=== PATIENT | male | born 1980 | race African-American/Black ===

== ENCOUNTER 2017-05-14 19:31 | Emergency (ER) | payer OTHER ==
[2017-05-14 19:43] VITALS: BP 149/70; PULSE 65; TEMP 98.5; BMI 24.5
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
== END 2017-05-14 22:23 | disposition home or self-care (01) ==
LOC: JERFT 19:31
PROC: 0HQ1XZZ Repair Face Skin, External Approach (ICD-10-PCS; principal; 2017-05-14)
DX: S01.81XA Laceration without foreign body of other part of head, initial encounter (principal); W20.8XXA Other cause of strike by thrown, projected or falling object, initial encounter; Y93.89 Activity, other specified; Y92.038 Other place in apartment as the place of occurrence of the external cause; F17.210 Nicotine dependence, cigarettes, uncomplicated; E11.9 Type 2 diabetes mellitus without complications
CPT/HCPCS: 99281-25

== ENCOUNTER 2017-05-20 17:21 | Emergency (ER) | payer OTHER ==
[2017-05-20 17:37] VITALS: BP 118/57; PULSE 67; TEMP 98.2; BMI 23.9
[2017-05-20] MEDS ORDERED: CEPHALEXIN MONOHYDRATE 500 MG CAPSULE (UD) PO ONE (18:27)
--- NOTE | 2017-05-20 18:27 | PDOC ---
Suture Removal/Wound Check HPI - History of Present Illness Chief Complaint: Suture/Staple Removal(Here) Stated Complaint: STITCHES REMOVAL Time Seen by Provider: 05/20/17 17:52 History Source: Yes: Patient Exam Limitations: Yes: No Limitations Treated at: [facility] [place] Date of Last ED visit: 05/14/17 - Previous ED Treatment Type of procedure performed on last visit: Yes: Laceration Repair Tetanus Immunization: Yes: Up to Date Antibiotics Prescribed: No - Onset of Previous Treatment Date of Occurence: 05/14/17 Past History - Past Medical History Allergies/Adverse Reactions: Allergies Allergy/AdvReac Type Severity Reaction Status Date / Time No Known Allergies Allergy Verified 05/14/17 19:41 Home Medications: Ambulatory Orders Insulin (LOG) Aspart [NovoLOG -] 0 units SQ BID 06/22/13 Insulin Glargine,Hum.rec.anlog [Lantus Solostar PEN -] 30 units SQ AM 06/22/13 Cephalexin Monohydrate [Keflex -] 500 mg PO Q8H #20 capsule 05/20/17 Diabetes: Yes (IDDM) HTN: Yes - Immunization History Td Vaccination: No (unknown) Immunization Up to Date: Yes - Suicide/Smoking/Psychosocial Hx Smoking Status: Yes Smoking History: Never smoked Have you smoked in the past 12 months: No Number of Cigarettes Smoked Daily: 5 Information on smoking cessation initiated: No 'Breaking Loose' booklet given: 08/09/15 Hx Alcohol Use: No Drug/Substance Use Hx: No Substance Use Type: None Suture Removal/Wound Check PE - Physical Exam Laceration/Wound Check Symptoms: reports: Other Comment (wound edges slightly raised with tenderness of wound edges) Comments: 05/20/17 18:05 3 sutures to rt. eyebrow area inserted here on 05/14/17 Current Severity Level: Mild Maximum Severity Level: Mild Location of Laceration/Wound: right: Face (rt. eyebrow area) *Review of Systems - Review of Systems Able to Perform ROS?: Yes Constitutional: No: Symptoms Reported HEENTM: No: Symptoms Reported Respiratory: No: Symptoms reported Cardiac (ROS): No: Symptoms Reported ABD/GI: No: Symptoms Reported : No: Symptoms Reported Musculoskeletal: No: Symptoms Reported Integumentary: Yes: Other (had 5 sutures interrupted rt. eyebrow area with slight wound edges raised slightly tender to touch) Neurological: No: Symptoms reported Medical Decision Making - Medical Decision Making 05/20/17 18:31 Patient reports that he did not apply bacitracin to wound twice daily and that he left the Steri-Strips on until they fell off did not follow instructions given to him on 05/14/2017 when given discharge instructions. Suture removal right eyebrow area slight infection noted on wound edges area is slightly raised tender to to touch 05/20/17 19:42 PLAN: 5 sutures removed to right eyebrow area with some complication wound edges slightly raised tender to touch Will treat patient with Keflex 500 mg by mouth now then every 8 hours FOR 7 days *DC/Admit/Observation/Transfer Diagnosis at time of Disposition: Visit for suture removal - Discharge Dispostion Disposition: HOME Condition at time of disposition: Stable - Prescriptions Prescriptions: Cephalexin Monohydrate [Keflex -] 500 mg PO Q8H #20 capsule - Referrals Referrals: Jacqueline Restrepo MD [Primary Care Provider] - - Patient Instructions Additional Instructions: Cleanse wound twice daily with antibacterial soap and water pat dry and apply a tiny amount of bacitracin ointment until area is totally healed Take antibiotics as prescribed today until finished Return to emergency room if any increased redness or discharge from wound Patient voiced understanding of discharge instructions and all questions were answered - Post Discharge Activity
[2017-05-20] MEDS ORDERED: CEPHALEXIN MONOHYDRATE 500 MG CAPSULE (UD) ONE (18:28)
== END 2017-05-20 18:31 | disposition home or self-care (01) ==
LOC: JERFT 17:21
DX: Z48.02 Encounter for removal of sutures (principal); I10 Essential (primary) hypertension; E11.9 Type 2 diabetes mellitus without complications; Z79.4 Long term (current) use of insulin
CPT/HCPCS: 99281-25

== ENCOUNTER 2018-08-31 10:56 | Inpatient (IN) | payer OTHER ==
[2018-08-31 11:05] VITALS: BMI 25.7
[2018-08-31] MEDS ORDERED: SODIUM CHLORIDE 1,000 ML IV STA (11:36)
[2018-08-31] MEDS ORDERED: KETOROLAC TROMETHAMINE 30 MG/1 ML VIAL IVPUSH ONE (11:36)
[2018-08-31] MEDS ORDERED: ONDANSETRON 4 MG/2 ML VIAL IVPUSH ONE (11:36)
[2018-08-31] MEDS ORDERED: FAMOTIDINE 20 MG/50 ML IVPB 20 MG/50 ML MG IVPB ONE ×2 (11:42→11:54)
--- NOTE | 2018-08-31 11:42 | PDOC ---
History of Present Illness - General Chief Complaint: Nausea/Vomiting Stated Complaint: VOMITING Time Seen by Provider: 08/31/18 11:33 History Source: Patient - History of Present Illness Timing/Duration: reports: other (yesterday) Abdominal Pain Onset Location: reports: epigastric Past History - Past Medical History Allergies/Adverse Reactions: Allergies Allergy/AdvReac Type Severity Reaction Status Date / Time No Known Allergies Allergy Verified 05/14/17 19:41 Home Medications: Ambulatory Orders Insulin (LOG) Aspart [NovoLOG -] 0 units SQ BID 06/22/13 Insulin Glargine,Hum.rec.anlog [Lantus Solostar PEN -] 30 units SQ AM 06/22/13 Cephalexin Monohydrate [Keflex -] 500 mg PO Q8H #20 capsule 05/20/17 COPD: No Diabetes: Yes (IDDM) HTN: Yes - Immunization History Td Vaccination: No (unknown) Immunization Up to Date: Yes - Suicide/Smoking/Psychosocial Hx Smoking Status: Yes Smoking History: Never smoked Have you smoked in the past 12 months: No Number of Cigarettes Smoked Daily: 5 Information on smoking cessation initiated: No 'Breaking Loose' booklet given: 08/09/15 Hx Alcohol Use: No Drug/Substance Use Hx: No Substance Use Type: None Review of Systems - Review of Systems Constitutional: No: Chills, Fever Respiratory: No: Shortness of Breath Cardiac (ROS): No: Chest Pain ABD/GI: Yes: Nausea, Vomiting. No: Blood Streaked Bowels, Constipated, Diarrhea , Tarry Stools : No: Dysuria *Physical Exam - Vital Signs Last Vital Signs Temp Pulse Resp BP Pulse Ox 97.9 F 70 18 127/62 98 08/31/18 11:02 08/31/18 11:02 08/31/18 11:02 08/31/18 11:02 08/31/18 11:02 - Physical Exam Comments: 08/31/18 11:43 Pt actively vomiting in ER General Appearance: Yes: Appropriately Dressed. No: Severe Distress HEENT: positive: Normal Voice Neck: positive: Supple Respiratory/Chest: positive: Lungs Clear, Normal Breath Sounds. negative: Respiratory Distress Cardiovascular: positive: Regular Rate, S1, S2 Gastrointestinal/Abdominal: positive: Normal Bowel Sounds, Tender (epigastrium) , Soft. negative: Distended, Guarding, Rebound Musculoskeletal: negative: CVA Tenderness Integumentary: positive: Dry, Warm Neurologic: positive: Fully Oriented, Alert, Normal Mood/Affect Moderate Sedation - Procedure Monitoring Vital Signs: Procedure Monitoring Vital Signs Temperature 97.9 F 08/31/18 11:02 Pulse Rate 70 08/31/18 11:02 Respiratory Rate 18 08/31/18 11:02 Blood Pressure 127/62 08/31/18 11:02 O2 Sat by Pulse Oximetry (%) 98 08/31/18 11:02 ED Treatment Course - LABORATORY CBC & Chemistry Diagram: 08/31/18 11:41 08/31/18 11:41 Medical Decision Making - Medical Decision Making 08/31/18 11:40 37-year-old male, history of IDDM, here with nausea, vomiting and epigastric pain since yesterday. Patient reports numerous episodes of non-bilious, non- bloody vomitus. No diarrhea, fever or chills. Denies unusual food, sick contacts or recent travel. No history of similar episode. Denies history of DKA. Denies excessive alcohol use and denies illicit drug use. See exam Abd pain w/ n/v Possible gastritis/GERD vs pancreatitis vs gastroenteritis (though no diarrhea) , r/o DKA -zofran -IVF -pain control -labs -reassess 08/31/18 13:21 Glu 444 w/ gap of 17. Will start insulin drip and admit. K currently 5.4. Pt accepted by ICU, though no beds currently available. Dr Barcenas aware of admission *DC/Admit/Observation/Transfer Diagnosis at time of Disposition: DKA (diabetic ketoacidoses) Qualifiers: Diabetes mellitus type: other specified (including GAMAL) Diabetes mellitus complication detail: without coma Qualified Code(s): E13.10 - Other specified diabetes mellitus with ketoacidosis without coma - Discharge Dispostion Condition at time of disposition: Fair Decision to Admit order: Yes - Referrals - Patient Instructions - Post Discharge Activity
[2018-08-31] MEDS ORDERED: ONDANSETRON 4 MG/2 ML VIAL ONE (11:54)
[2018-08-31 12:35] LABS: BASO % 0.1 % (0-2.0); HEMOGLOBIN 14.1 GM/dL (11.7-16.9)
[2018-08-31 12:48] LABS: ALBUMIN 4.1 g/dl (3.4-5.0); ALK PHOS 90 U/L (45-117); ANION GAP 17 MMOL/L (8-16); BILIRUBIN,TOTAL 0.8 mg/dL (0.2-1); BLOOD UREA NITROGEN 27 mg/dL (7-18); CALCIUM 9.3 mg/dL (8.5-10.1); CHLORIDE 94 mmol/L (98-107); CO2 21 mmol/L (21-32); CREATININE 1.6 mg/dL (0.55-1.3); HEMATOCRIT 40.1 % (35.4-49); LIPASE 71 U/L (73-393); LYMPH % 7.3 % (8-40); MCH 31.9 pg (25.7-33.7); MCHC 35.3 g/dl (32.0-35.9); MEAN CELL VOLUME 90.2 fl (80-96); MEAN PLT VOLUME 10.7 fl (7.5-11.1); MONO % 0.9 % (3.8-10.2); NEUT % 91.7 % (42.8-82.8); PLATELET COUNT 148 K/MM3 (134-434); POTASSIUM 5.4 mmol/L (3.5-5.1); RBC 4.44 M/mm3 (4.00-5.60); RDW 13.8 % (11.9-15.9); SGOT/AST 20 U/L (15-37); SGPT/ALT 33 U/L (13-61); SODIUM 132 mmol/L (136-145); TOT PROT 7.1 g/dl (6.4-8.2); WHITE BLOOD COUNT 9.4 K/mm3 (4.0-10.0)
[2018-08-31 12:54] LABS: GLUCOSE,RANDOM 444 mg/dL (74-106)
[2018-08-31] MEDS ORDERED: INSULIN REGULAR 100 UNITS in SODIUM CHLORIDE 99 ML IVPB SCH (13:15)
[2018-08-31] MEDS ORDERED: INSULIN REGULAR HUMAN 100 UNITS/ML *VIAL IV ONE (13:17)
--- NOTE | 2018-08-31 13:32 | CONSULT ---
Consultation: REQUESTING PROVIDER: Kaya Romero CONSULT REQUEST: Management of DKA requiring Insulin gtt HISTORY OF PRESENT ILLNESS: The patient is a 37M w/ a history of HTN and T2DM who presented to the ED for evaluation of 1d of periumbilical/epigastric abdominal pain described as constant, cramping, non-radiating, and associated with nausea and multiple episodes of NBNB emesis. The patient reports that he has similar symptoms approximately every three months and they generally resolve spontaneously. In the ED, the patient was found to be in DKA and was started in an IVF and an insulin gtt. He denies previous episodes of DKA, denies previous hospitalizations for his DM. Endorses compliance with his insulin. Denies any recent changes to his regimen. Denies recent illness, fevers/chills, chest pain, SOB, diarrhea, polyuria, polydipsia, or changes in sensation. Denies sick contacts REVIEW OF SYSTEMS: GENERAL/CONSTITUTIONAL: No fever or chills. No weakness HEAD, EYES, EARS, NOSE AND THROAT: No change in vision. No ear pain or discharge. No sore throat CARDIOVASCULAR: No chest pain or shortness of breath RESPIRATORY: Denies cough, hemoptysis GASTROINTESTINAL: per HPI GENITOURINARY: No dysuria, frequency, or change in urination MUSCULOSKELETAL: No joint or muscle swelling or pain. No neck or back pain SKIN: No rash NEUROLOGIC: No headache, vertigo, loss of consciousness, or change in strength/ sensation ENDOCRINE: No increased thirst. No abnormal weight change HEMATOLOGIC/LYMPHATIC: No anemia, easy bleeding, or history of blood clots ALLERGIC/IMMUNOLOGIC: No hives or skin allergy PHYSICAL EXAMINATION Vital Signs Period Temp Pulse Resp BP Sys/Morrison Pulse Ox Last 24 Hr 97.9 F 70 18 127/62 98 GENERAL: Awake, alert, and fully oriented, in no acute distress HEAD: No signs of trauma, normocephalic, atraumatic EYES: PERRLA, EOMI, sclera anicteric, conjunctiva clear ENT: Hearing grossly normal, nares patent, oropharynx clear without exudates. Moist mucosa LUNGS: No distress, speaks full sentences, clear to auscultation bilaterally HEART: Regular rate and rhythm, normal S1 and S2, no murmurs appreciated, peripheral pulses normal and equal bilaterally ABDOMEN: Soft, epigastrc/periumbilical TTP w/o rebound or guarding, normoactive bowel sounds EXTREMITIES : Normal inspection, Normal range of motion, no edema. No clubbing or cyanosis NEUROLOGICAL: Cranial nerves II through XII grossly intact. Normal speech, no focal sensorimotor deficits SKIN: Warm, Dry ASSESSMENT/PLAN: The patient is a 37M w/ a history of T2DM who presented w/ 1d of abdominal pain with associated N/V and was found to be in DKA w/ an AG of 17. Neuro Acute Pain -s/p Toradol in ED CV HTN -Will hold home Lisinopril until DKA resolves Pulm Breathing comfortably on RA GI Nutrition -NPO Nausea -Zofran PRN -Lytes wnl, CTM -IVF Heme DVT Ppx -Heparin 5000u SQ TID ID Afebrile No leukocytosis Endo T2DM w/ DKA -Insulin gtt -IVF -BGM Dispo: Patient to be admitted to the ICU for management of DKA Visit type - Emergency Visit Emergency Visit: Yes Care time: The patient presented to the Emergency Department on the above date and was hospitalized for further evaluation of their emergent condition. - New Patient This patient is new to me today: Yes Date on this admission: 08/31/18 - Critical Care Critical Care patient: Yes Total Critical Care Time (in minutes): 35 Critical Care Statement: The care of this patient involved high complexity decision making to prevent further life threatening deterioration of the patient 's condition and/or to evaluate & treat vital organ system(s) failure or risk of failure.
[2018-08-31] MEDS ORDERED: LACTATED RINGERS SOLUTION 1,000 ML/1,000 ML INFUS.BAG IV SCH (14:00)
[2018-08-31] MEDS ORDERED: INSULIN REGULAR HUMAN 100 UNITS/ML *VIAL ONE (14:15)
[2018-08-31] MEDS ORDERED: LACTATED RINGERS SOLUTION 1000 ML INFUS.BAG IV ONE (14:18)
[2018-08-31] MEDS ORDERED: ONDANSETRON 4 MG/2 ML VIAL IVPUSH PRN (14:36)
[2018-08-31 14:37] LABS: URINE APPEARANCE CLEAR; URINE BILIRUBIN NEGATIVE (<2.0 mg/dL); URINE COLOR LTYELLOW; URINE GLUCOSE (UA) 3+ (NEGATIVE); URINE KETONE 1+ (NEGATIVE); URINE LEUK ESTERASE NEGATIVE (NEGATIVE); URINE NITRITE NEGATIVE (NEGATIVE); URINE PROTEIN 2+ (NEGATIVE); URINE UROBILINOGEN NEGATIVE mg/dL (0.2-1.0)
[2018-08-31 14:49] LABS: EPI CELLS RARE /HPF (FEW); URINE MUCUS RARE
[2018-08-31] MEDS ORDERED: INSULIN REGULAR HUMAN 100 UNITS/ML *VIAL IVPUSH ONE (15:07)
[2018-08-31 15:10] LABS: ANISOCYTOSIS 3+; MACROCYTOSIS 0; PLATELET ESTIMATE DECREASED
--- NOTE | 2018-08-31 16:42 | HP ---
Admitting History and Physical - Primary Care Physician PCP: Miah Barcenas - Admission History of Present Illness: 37M w/ a history of HTN and T2DM who presented to the ED for evaluation of 1d of periumbilical/epigastric abdominal pain described as constant, cramping, non- radiating, and associated with nausea and multiple episodes of NBNB emesis. The patient reports that he has similar symptoms approximately every three months and they generally resolve spontaneously. He denies previous episodes of DKA, denies previous hospitalizations for his DM. Endorses compliance with his insulin. Denies any recent changes to his regimen. - Past Medical History Cardiovascular: Yes: HTN Endocrine: Yes: Diabetes Mellitus - Smoking History Smoking history: Never smoked Have you smoked in the past 12 months: No Aproximately how many cigarettes per day: 5 - Alcohol/Substance Use Hx Alcohol Use: No Home Medications - Allergies Allergies/Adverse Reactions: Allergies Allergy/AdvReac Type Severity Reaction Status Date / Time No Known Allergies Allergy Verified 05/14/17 19:41 - Home Medications Home Medications: Ambulatory Orders Insulin (LOG) Aspart [NovoLOG -] 0 units SQ BID 06/22/13 Insulin Glargine,Hum.rec.anlog [Lantus Solostar PEN -] 30 units SQ AM 06/22/13 Cephalexin Monohydrate [Keflex -] 500 mg PO Q8H #20 capsule 05/20/17 Physical Examination Vital Signs: Vital Signs Temperature 97.9 F 08/31/18 11:02 Pulse Rate 70 08/31/18 11:02 Respiratory Rate 18 08/31/18 11:02 Blood Pressure 127/62 08/31/18 11:02 O2 Sat by Pulse Oximetry (%) 98 08/31/18 11:02 Constitutional: Yes: No Distress HENT: Yes: Atraumatic Neck: Yes: Supple Cardiovascular: Yes: Regular Rate and Rhythm Respiratory: Yes: Rhonchi Gastrointestinal: Yes: Normal Bowel Sounds Extremities: Yes: WNL Edema: No Peripheral Pulses WNL: Yes Neurological: Yes: Alert, Oriented Labs: CBC, BMP 08/31/18 11:41 Problem List - Problems (1) DKA (diabetic ketoacidoses) Code(s): E13.10 - OTH DIABETES MELLITUS WITH KETOACIDOSIS WITHOUT COMA Qualifiers: Diabetes mellitus type: other specified (including GAMAL) Diabetes mellitus complication detail: without coma Qualified Code(s): E13.10 - Other specified diabetes mellitus with ketoacidosis without coma Assessment/Plan Laboratory Results - last 24 hr 08/31/18 08/31/18 08/31/18 11:41 11:41 14:15 WBC 9.4 RBC 4.44 Hgb 14.1 Hct 40.1 MCV 90.2 MCH 31.9 MCHC 35.3 RDW 13.8 Plt Count 148 MPV 10.7 Absolute Neuts (auto) 8.6 H Neutrophils % 91.7 H Neutrophils % (Manual) 91.3 H Band Neutrophils % 0.0 Lymphocytes % 7.3 L D Lymphocytes % (Manual) 2.9 L Monocytes % 0.9 L Monocytes % (Manual) 0 L Eosinophils % 0.0 D Eosinophils % (Manual) 0.0 Basophils % 0.1 Basophils % (Manual) 0.0 Myelocytes % (Man) 0 Promyelocytes % (Man) 0 Blast Cells % (Manual) 0 Nucleated RBC % 0 Metamyelocytes 0 Hypochromia 0 Platelet Estimate Decreased Platelet Comment Present Polychromasia 1+ Poikilocytosis 0 Anisocytosis 3+ Microcytosis 3+ Macrocytosis 0 Sodium 132 L Potassium 5.4 H Chloride 94 L Carbon Dioxide 21 Anion Gap 17 H BUN 27 H Creatinine 1.6 H Creat Clearance w eGFR 48.62 POC Glucometer Random Glucose 444 H* Calcium 9.3 Total Bilirubin 0.8 AST 20 ALT 33 Alkaline Phosphatase 90 Total Protein 7.1 Albumin 4.1 Lipase 71 L Urine Color Ltyellow Urine Appearance Clear Urine pH 5.0 D Ur Specific [place] 1.024 Urine Protein 2+ H Urine Glucose (UA) 3+ H Urine Ketones 1+ H Urine Blood 2+ H Urine Nitrite Negative Urine Bilirubin Negative Urine Urobilinogen Negative Ur Leukocyte Esterase Negative Urine WBC (Auto) <1 Urine RBC (Auto) 5 Ur Epithelial Cells Rare Urine Mucus Rare 08/31/18 16:04 WBC RBC Hgb Hct MCV MCH MCHC RDW Plt Count MPV Absolute Neuts (auto) Neutrophils % Neutrophils % (Manual) Band Neutrophils % Lymphocytes % Lymphocytes % (Manual) Monocytes % Monocytes % (Manual) Eosinophils % Eosinophils % (Manual) Basophils % Basophils % (Manual) Myelocytes % (Man) Promyelocytes % (Man) Blast Cells % (Manual) Nucleated RBC % Metamyelocytes Hypochromia Platelet Estimate Platelet Comment Polychromasia Poikilocytosis Anisocytosis Microcytosis Macrocytosis Sodium Potassium Chloride Carbon Dioxide Anion Gap BUN Creatinine Creat Clearance w eGFR POC Glucometer [id number] Random Glucose Calcium Total Bilirubin AST ALT Alkaline Phosphatase Total Protein Albumin Lipase Urine Color Urine Appearance Urine pH Ur Specific [place] Urine Protein Urine Glucose (UA) Urine Ketones Urine Blood Urine Nitrite Urine Bilirubin Urine Urobilinogen Ur Leukocyte Esterase Urine WBC (Auto) Urine RBC (Auto) Ur Epithelial Cells Urine Mucus Active Medications Generic Name Dose Route Start Last Admin Trade Name Harshadq PRN Reason Stop Dose Admin Chlorhexidine Gluconate 1 applic 08/31/18 22:00 Hibiclens For Decolonization - TP HS YESSICA Heparin Sodium (Porcine) 5,000 unit 08/31/18 22:00 Heparin - SQ TID YESSICA Insulin Human Regular 100 100 mls @ 7.43 mls/hr 08/31/18 13:15 08/31/18 15:01 units/ Sodium Chloride IVPB 0.1 units/kg/hr TITR YESSICA 7.43 mls/hr Administration Protocol 0.1 UNITS/KG/HR Lactated Ringer's 1,000 ml in 1,000 mls @ 200 mls/hr 08/31/18 14:00 08/31/18 15:32 Lactated Ringers Solution IV 200 mls/hr ASDIR YESSICA Administration Mupirocin 1 applic 08/31/18 22:00 Bactroban Ointment (For Decolonization) - NS 09/05/18 21:59 BID YESSICA Ondansetron HCl 4 mg 08/31/18 14:36 Zofran Injection IVPUSH Q6H PRN NAUSEA Pantoprazole Sodium 40 mg 09/01/18 10:00 Protonix Iv IVPUSH DAILY YESSICA
[2018-08-31 17:09] LABS: ALBUMIN 3.4 g/dl (3.4-5.0); ALK PHOS 76 U/L (45-117); ANION GAP 15 MMOL/L (8-16); BILIRUBIN,TOTAL 0.6 mg/dL (0.2-1); BLOOD UREA NITROGEN 32 mg/dL (7-18); CALCIUM 8.4 mg/dL (8.5-10.1); CHLORIDE 102 mmol/L (98-107); CO2 20 mmol/L (21-32); CREATININE 1.5 mg/dL (0.55-1.3); POTASSIUM 3.7 mmol/L (3.5-5.1); SGOT/AST 12 U/L (15-37); SGPT/ALT 26 U/L (13-61); SODIUM 137 mmol/L (136-145); TOT PROT 5.9 g/dl (6.4-8.2)
[2018-08-31] MEDS ORDERED: POTASSIUM CHLORIDE TABS 20 MEQ TABLET.ER (FP) PO ONE (18:00)
[2018-08-31] MEDS ORDERED: SODIUM CHLORIDE 0.9%/KCL 20 MEQ/1,000 ML INFUS.BAG IV SCH (18:00)
[2018-08-31 18:21] LABS: ACETONE SERUM POSITIVE LARGE 3+ (NEGATIVE)
[2018-08-31 18:30] LABS: GLUCOSE,RANDOM 325 mg/dL (74-106)
[2018-08-31] MEDS ORDERED: D5-NS + 40 MEQ KCL - 40 MEQ/1,000 ML INFUS.BAG IV SCH (19:30)
[2018-08-31 20:47] LABS: ANION GAP 8 MMOL/L (8-16); BLOOD UREA NITROGEN 33 mg/dL (7-18); CALCIUM 8.8 mg/dL (8.5-10.1); CHLORIDE 105 mmol/L (98-107); CO2 27 mmol/L (21-32); CREATININE 1.6 mg/dL (0.55-1.3); GLUCOSE,RANDOM 73 mg/dL (74-106); MAGNESIUM 1.9 mg/dL (1.8-2.4); POTASSIUM 4.5 mmol/L (3.5-5.1); SODIUM 140 mmol/L (136-145)
[2018-08-31 20:48] LABS: ANION GAP 7 MMOL/L (8-16); BLOOD UREA NITROGEN 32 mg/dL (7-18); CALCIUM 9.1 mg/dL (8.5-10.1); CHLORIDE 106 mmol/L (98-107); CO2 25 mmol/L (21-32); CREATININE 1.5 mg/dL (0.55-1.3); GLUCOSE,RANDOM 58 mg/dL (74-106); PHOSPHOROUS 2.8 mg/dL (2.5-4.9); POTASSIUM 4.1 mmol/L (3.5-5.1); SODIUM 139 mmol/L (136-145)
[2018-08-31] MEDS ORDERED: DEXTROSE 50%-WATER - 25 GM/50 ML VIAL IVPUSH ONE (21:06)
[2018-08-31] MEDS ORDERED: DEXTROSE 50%-WATER 25 GM/50 ML DISP.SYRIN ONE (21:07)
[2018-08-31] MEDS: KCL 10 MEQ IVPB 10 MEQ/100 ML INFUS.BAG IVPB SCH ×2 (21:19→21:31)
[2018-08-31 21:25] VITALS: BP 124/71; PULSE 74; TEMP 98
[2018-08-31] MEDS ORDERED: HEPARIN NA (PORCINE) 5,000 UNITS/ML 1ML VIAL SQ SCH (22:00)
[2018-08-31] MEDS ORDERED: MUPIROCIN 2% TOPICAL OINTMENT FOR DECOLONIZATION NS SCH (22:00)
[2018-08-31] MEDS ORDERED: CHLORHEXIDINE GLUCONATE 4% CLEANSER FOR DECOLONIZATION TP SCH (22:00)
[2018-08-31 22:11] LABS: ALBUMIN 3.8 g/dl (3.4-5.0); ALK PHOS 76 U/L (45-117); BILIRUBIN,TOTAL 0.6 mg/dL (0.2-1); SGOT/AST 12 U/L (15-37); SGPT/ALT 26 U/L (13-61); TOT PROT 6.1 g/dl (6.4-8.2)
[2018-09-01] MEDS ORDERED: PANTOPRAZOLE SODIUM 40 MG VIAL IVPUSH SCH (10:00)
--- NOTE | 2018-09-01 10:04 | EKG ---
Test Reason : Blood Pressure : / mmHG Vent. Rate : 071 BPM Atrial Rate : 071 BPM P-R Int : 184 ms QRS Dur : 090 ms QT Int : 434 ms P-R-T Axes : 073 078 062 degrees QTc Int : 471 ms NORMAL SINUS RHYTHM WITH SINUS ARRHYTHMIA POSSIBLE LEFT ATRIAL ENLARGEMENT LEFT VENTRICULAR HYPERTROPHY ABNORMAL ECG Confirmed by Jerome Duke MD ([id number]) on 09/01/2018 10:04:08 AM Referred By: Confirmed By:Jerome Duke MD
== END 2018-08-31 21:29 | disposition left against medical advice (07) | DRG 420 ==
LOC: JER 10:56 → JERBED 13:31
PROVIDERS: ADMIT Internal Medicine; ATTEND Internal Medicine
DX: E11.10 Type 2 diabetes mellitus with ketoacidosis without coma (principal); Z79.4 Long term (current) use of insulin; I10 Essential (primary) hypertension
CPT/HCPCS: 36415; 80048; 80053; 81003; 81015; 82009; 82962; 83690; 83735; 84100; 85025; 93005; 93010; 99282-25; J7030

== ENCOUNTER 2019-06-23 08:51 | Emergency (ER) | payer OTHER ==
[2019-06-23 09:00] VITALS: BP 137/82; PULSE 85; TEMP 99.8; BMI 23.5
--- NOTE | 2019-06-23 09:21 | PDOC ---
History of Present Illness - General Chief Complaint: Eye Problem Stated Complaint: RT EYE TEARING Time Seen by Provider: 06/23/19 09:07 - History of Present Illness Initial Comments: 06/23/19 09:16 CHIEF COMPLAINT: eye pain HISTORY OF PRESENT ILLNESS: 38 yo M with hx of DM and HTN [facility] to [facility] with R eye pain. Patient reports he was playing with his son two days ago and a piece of paper accidentally scratched his eye, and today he was working on something with his hands and accidentally poked his eye with his finger again. He reports swelling, tearing, and redness to his right eye and that he feels "like there's something back there scratching behind my eye and needs to get out." Patient denies wearing contacts. No recent travel or sick contacts. PAST MEDICAL HISTORY: DM, HTN FAMILY HISTORY: Denies SOCIAL HISTORY: Denies tobacco, alcohol, illicit drug use. SURGICAL HISTORY: Denies ALLERGIES: No known drug allergies REVIEW OF SYSTEMS General/Constitutional: Denies fever or chills. Denies weakness, weight change. HEENT: R eye irritation, redness, swelling. Denies change in vision. Denies ear pain or discharge. Denies sore throat. Cardiovascular: Denies chest pain or shortness of breath. Respiratory: Denies cough, wheezing, or hemoptysis. Gastrointestinal: Denies nausea, vomiting, diarrhea or constipation. Denies rectal bleeding. Genitourinary: Denies dysuria, frequency, or change in urination. Musculoskeletal: Denies joint or muscle swelling or pain. Denies neck or back pain. Skin and breasts: Denies rash or easy bruising. Neurologic: Denies headache, vertigo, loss of consciousness, or loss of sensation. Psychiatric: Denies depression or anxiety. PHYSICAL EXAM General Appearance: Well-appearing, appropriately dressed. No apparent distress , no intoxication. HEENT: Tearing, injected R eye with erythema and mild eyelid swelling. No entrapment or globe rupture. EOMI, PERRLA, normal ENT inspection, normal voice , TMs normal, pharynx normal. No conjunctival pallor. No photophobia, scleral icterus. Neck: Supple. Trachea midline. No tenderness, rigidity, carotid bruit, stridor , lymphadenopathy, or thyromegaly. Respiratory/Chest: Lungs CTAB. No shortness of breath, chest tenderness, respiratory distress, accessory muscle use. No crackles, rales, rhonchi, stridor , wheezing, dullness Cardiovascular: RRR. S1, S2. No JVD, murmur, bradycardia, tachycardia. Vascular Pulses: Dorsalis-Pedis (R): 2+, Dorsalis-Pedis (L): 2+ Gastrointestinal/Abdominal: Normal bowel sounds. Abdomen soft, non-distended. No tenderness or rebound tenderness. No organomegaly, pulsatile mass, guarding , hernia, hepatomegaly, splenomegaly. Lymphatic: No adenopathy, tenderness. Musculoskeletal/Extremities: Normal inspection. FROM of all extremities, normal capillary refill. Pelvis Stable. No CVA tenderness. No tenderness to extremities, pedal edema, swelling, erythema or deformity. Integumentary: Appropriate color, dry, warm. 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 Fully oriented, alert. Appropriate mood/affect. Motor strength 5/5. No appreciable EOM palsy, facial droop or sensory deficit. 06/23/19 09:21 Past History - Past Medical History Allergies/Adverse Reactions: Allergies Allergy/AdvReac Type Severity Reaction Status Date / Time No Known Allergies Allergy Verified 06/23/19 08:59 Home Medications: Ambulatory Orders Insulin (LOG) Aspart [NovoLOG -] 0 units SQ BID 06/22/13 Insulin Glargine,Hum.rec.anlog [Lantus Solostar PEN -] 30 units SQ AM 06/22/13 Cephalexin Monohydrate [Keflex -] 500 mg PO Q8H #20 capsule 05/20/17 Erythromycin 0.5% Eye Ointment [Erythromycin 0.5% Eye Ointment -] 1 applic OD QID 7 Days #1 tube 06/23/19 COPD: No Diabetes: Yes (IDDM) HTN: Yes - Immunization History Td Vaccination: No (unknown) Immunization Up to Date: Yes - Psycho Social/Smoking Cessation Hx Smoking Status: Yes Smoking History: Never smoked Have you smoked in the past 12 months: No Number of Cigarettes Smoked Daily: 5 Information on smoking cessation initiated: No 'Breaking Loose' booklet given: 08/09/15 Hx Alcohol Use: No Drug/Substance Use Hx: No Substance Use Type: None *Physical Exam - Vital Signs Last Vital Signs Temp Pulse Resp BP Pulse Ox 99.8 F H 85 17 137/82 99 06/23/19 08:57 06/23/19 08:57 06/23/19 08:57 06/23/19 08:57 06/23/19 08:57 Medical Decision Making - Medical Decision Making 06/23/19 09:18 38 yo M with hx of DM and HTN [facility] with R eye pain. Tetracaine, flourescein stain applied. Corneal abrasion visualized from 3 to 4 o'clock of R eye. -erythromycin ointment Advised patient to take medication as prescribed and follow up with ophthalmology if symptoms persist past 1 week. Advised patient of signs and symptoms for return to ED. Patient verbalized understanding and agrees to plan. Discharge - Discharge Information Problems reviewed: Yes Clinical Impression/Diagnosis: Corneal abrasion, right Qualifiers: Encounter type: initial encounter Qualified Code(s): S05.01XA - Injury of conjunctiva and corneal abrasion without foreign body, right eye, initial encounter Condition: Stable Disposition: HOME - Admission No - Additional Discharge Information Prescriptions: Erythromycin 0.5% Eye Ointment [Erythromycin 0.5% Eye Ointment -] 1 applic OD QID 7 Days #1 tube - Follow up/Referral - Patient Discharge Instructions Patient Printed Discharge Instructions: DI for Corneal Abrasion Additional Instructions: Please use medication as prescribed. Follow up with ophthalmology if symptoms persist past 1 week. If you develop any new or worsening symptoms, please return to the ER. - Post Discharge Activity Work/Back to School Note: Back to Work
== END 2019-06-23 09:45 | disposition home or self-care (01) ==
LOC: JERFT 08:51
DX: S05.01XA Injury of conjunctiva and corneal abrasion without foreign body, right eye, initial encounter (principal); E11.9 Type 2 diabetes mellitus without complications; I10 Essential (primary) hypertension
CPT/HCPCS: 99281-25

== ENCOUNTER 2021-12-17 17:44 | Emergency (ER) | payer OTHER ==
[2021-12-17 18:05] VITALS: BP 127/71; PULSE 60; TEMP 98.1; BMI 23.5
[2021-12-17] MEDS ORDERED: KETOROLAC TROMETHAMINE 30 MG/1 ML VIAL IM ONE (18:27)
== END 2021-12-17 18:45 | disposition home or self-care (01) ==
LOC: JER 17:44
PROC: 3E0233Z Introduction of Anti-inflammatory into Muscle, Percutaneous Approach (ICD-10-PCS; principal; 2021-12-17)
DX: M25.511 Pain in right shoulder (principal)
CPT/HCPCS: 73030-TC-RT-FY; 96372; 99284-25

== ENCOUNTER 2023-03-20 19:13 | Emergency (ER) | payer OTHER ==
[2023-03-20 19:28] VITALS: BP 162/78; PULSE 61; RESP 16; TEMP 97.8; BMI 23.8
[2023-03-20 20:49] LABS: BASO % 0.7 % (0-2.0); CHLORIDE 109 mmol/L (98-107); EOS % 2.7 % (0-4.5); HEMATOCRIT 34.9 % (35.4-49); HEMOGLOBIN 11.7 GM/dL (11.7-16.9); LYMPH % 22.1 % (8-40); MCH 30.4 pg (25.7-33.7); MCHC 33.5 g/dl (32.0-35.9); MEAN CELL VOLUME 90.8 fl (80-96); MEAN PLT VOLUME 9.2 fl (7.5-11.1); MONO % 5.9 % (3.8-10.2); NEUT % 68.6 % (42.8-82.8); PLATELET COUNT 175 10^3/uL (134-434); POTASSIUM 4.7 mmol/L (3.5-5.1); RBC 3.85 M/mm3 (4.00-5.60); RDW 14.2 % (11.9-15.9); SODIUM 142 mmol/L (136-145); WHITE BLOOD COUNT 6.5 K/mm3 (4.0-10.0)
[2023-03-20 20:53] LABS: ALBUMIN 3.3 g/dl (3.4-5.0); ANION GAP 3 MMOL/L (8-16); BLOOD UREA NITROGEN 11.9 mg/dL (7-18); CALCIUM 8.7 mg/dL (8.5-10.1); CO2 30 mmol/L (21-32); GLUCOSE,RANDOM 255 mg/dL (74-106)
[2023-03-20 20:56] LABS: CREATININE 1.4 mg/dL (0.55-1.3)
[2023-03-20 20:57] LABS: SGOT/AST 9 U/L (15-37); SGPT/ALT 19 U/L (13-61)
[2023-03-20 20:58] LABS: BILIRUBIN,TOTAL < 0.1 mg/dL (0.2-1); TOT PROT 6.2 g/dl (6.4-8.2)
[2023-03-20 20:59] LABS: ALK PHOS 101 U/L (45-117)
[2023-03-20] MEDS ORDERED: AMOX TR/POT CLAV 500MG/125MG TABLETS (FP) PO ONE (21:12)
[2023-03-20] MEDS ORDERED: AMOX TR/POT CLAV 500MG/125MG TABLETS (FP) ONE (21:17)
== END 2023-03-20 21:23 | disposition home or self-care (01) ==
LOC: JERFT 19:13 → JER 19:13 → JERFT 21:23
PROC: 0H91XZZ Drainage of Face Skin, External Approach (ICD-10-PCS; principal; 2023-03-20)
DX: K04.7 Periapical abscess without sinus (principal); H60.92 Unspecified otitis externa, left ear; H83.02 Labyrinthitis, left ear; K08.89 Other specified disorders of teeth and supporting structures
CPT/HCPCS: 36415; 80053; 85025; 99283-25

== ENCOUNTER 2023-10-04 20:04 | Emergency (ER) | payer OTHER ==
[2023-10-04 20:10] VITALS: BP 178/90; PULSE 98; RESP 22; TEMP 97.5; BMI 25.0
[2023-10-04] MEDS ORDERED: DIPHTH,PERTUSS(ACELL),TET 0.5 ML DISP.SYRIN IM ONE (20:32)
[2023-10-04] MEDS ORDERED: IBUPROFEN 600 MG TABLET (FP) PO ONE (20:32)
[2023-10-04] MEDS: DIPHTH,PERTUSS(ACELL),TET 0.5 ML DISP.SYRIN IM ONE (20:36)
[2023-10-04] MEDS: IBUPROFEN 600 MG TABLET (FP) PO ONE (20:36)
== END 2023-10-04 20:47 | disposition short-term general hospital (02) ==
LOC: JER 20:04
PROC: 3E0234Z Introduction of Serum, Toxoid and Vaccine into Muscle, Percutaneous Approach (ICD-10-PCS; principal; 2023-10-04)
DX: S61.411A Laceration without foreign body of right hand, initial encounter (principal); W26.0XXA Contact with knife, initial encounter
CPT/HCPCS: 90471; 90715; 99283-25

== ENCOUNTER 2023-10-16 09:32 | Emergency (ER) | payer OTHER ==
[2023-10-16 09:40] VITALS: BP 147/76; PULSE 78; RESP 18; TEMP 98.5; BMI 24.5
== END 2023-10-16 09:55 | disposition home or self-care (01) ==
LOC: JERFT 09:32
DX: Z48.02 Encounter for removal of sutures (principal)
CPT/HCPCS: 99281-25